=== PATIENT | male | born 1950 | race Caucasian/White ===

== ENCOUNTER → 2016-03-04 | Outpatient (REF) | payer MEDICARE ==
[~2016-03-04] MED LIST: /WARF25TA PO; GABA300C2 PO; METH10TA2 PO; PRIL20TA2 PO; TYLE325T5 PO; VALP250C PO; ZOCO20TA PO; [UNRECOGNIZED DRUG - CODE] PO; [UNRECOGNIZED DRUG - CODE] PO; [UNRECOGNIZED DRUG - CODE] TOP
== END ==
LOC: M SFHCCLAY 11:41
PROVIDERS: ATTEND Family Medicine
DX: E29.1 Testicular hypofunction (principal)

== ENCOUNTER → 2016-03-05 | Outpatient (CLI) | payer MEDICARE ==
[2016-03-05 14:24] LABS: FOLLICLE STIMULATING HORMONE 4.4 mIU/mL (1.4-18.1); LUTEINIZING HORMONE 2.8 mIU/mL (1.5-9.3)
== END | disposition home or self-care (01) ==
LOC: M LAB 12:33
PROVIDERS: ATTEND Family Medicine
DX: E29.1 Testicular hypofunction (principal)

== ENCOUNTER → 2017-02-24 | Outpatient (REF) | payer MEDICARE | LOC: M SFHCCLAY 12:22 | DX: M25.532 Pain in left wrist (principal); I10 Essential (primary) hypertension; Z51.81 Encounter for therapeutic drug level monitoring; G89.29 Other chronic pain; Z53.8 Procedure and treatment not carried out for other reasons ==

== ENCOUNTER → 2017-05-06 | Outpatient (REF) | payer MEDICARE ==
[2017-05-06 17:10] LABS: FREE T4 0.69 NG/DL (0.76-1.46)
== END ==
LOC: M SFHCCLAY 13:51
DX: R94.6 Abnormal results of thyroid function studies (principal)
CPT/HCPCS: 84443

== ENCOUNTER → 2018-06-29 | Outpatient (REF) | payer OTHER ==
[~2018-06-29] MED LIST changes: -/WARF25TA PO; +COUM1TAB18 PO
[2018-06-29 17:21] LABS: HEMATOCRIT 56.9 % (42.0-52.0); HEMOGLOBIN 18.7 g/dl (13.5-17.5); MEAN CORPUSCULAR HEMOGLOBIN 28.1 pg (27.0-33.0); MEAN CORPUSCULAR HGB CONC 32.9 g/dl (32.0-36.5); MEAN CORPUSCULAR VOLUME 85.6 fl (80.0-96.0); PLATELET COUNT, AUTOMATED 165 10^3/uL (150-450); RED BLOOD COUNT 6.65 10^6/uL (4.30-6.10); WHITE BLOOD COUNT 6.6 10^3/uL (4.0-10.0)
[2018-06-29 17:31] LABS: ALT/SGPT 37 U/L (12-78); BILIRUBIN,TOTAL 0.6 MG/DL (0.2-1.0); BLOOD UREA NITROGEN 18 MG/DL (7-18); CARBON DIOXIDE LEVEL 29 MEQ/L (21-32); CHLORIDE LEVEL 102 MEQ/L (98-107); GLOMERULAR FILTRATION RATE > 60.0 (>49); GLUCOSE, FASTING 87 MG/DL (70-100); POTASSIUM SERUM 4.4 MEQ/L (3.5-5.1); SODIUM LEVEL 139 MEQ/L (136-145); TOTAL PROTEIN 7.4 GM/DL (6.4-8.2); VALPROIC ACID (DEPAKOTE) 37.8 UG/ML (50.0-100.0)
[2018-07-07 00:06] LABS: CANNABINOID, URINE Positive (Cutoff=20); CARBOXY THC (GC/MS) 82 ng/mL (Cutoff=10); CREATININE, URINE 96.5 mg/dL (20.0-300.0); METHADONE, URINE (GC/MS) 730 ng/mL (Cutoff=100); OPIATES, URINE Negative ng/mL (Cutoff=300); OXYCODONE URINE Positive (.); OXYCODONE, URINE CONFIRM 1232 ng/mL (Cutoff=100); OXYCODONE/OXYMORPH, URINE Positive (Cutoff=100); OXYMORPHONE, URINE Positive (.); OXYMORPHONE, URINE CONFIRM 878 ng/mL (Cutoff=100)
== END ==
LOC: M SFHCCLAY 13:16
PROVIDERS: ATTEND Family Medicine
DX: Z51.81 Encounter for therapeutic drug level monitoring (principal); Z79.899 Other long term (current) drug therapy; M87.051 Idiopathic aseptic necrosis of right femur; G89.29 Other chronic pain; G40.909 Epilepsy, unspecified, not intractable, without status epilepticus

== ENCOUNTER → 2018-09-07 | Outpatient (CLI) | payer OTHER ==
--- NOTE | 2018-09-07 10:25 | REP ---
MRI RIGHT SHOULDER WITHOUT CONTRAST: TECHNIQUE: Axial T2 fat sat, gradient echo, sagittal oblique T2 fat sat, coronal oblique T1, T2 fat sat. The supraspinatus tendon demonstrates ill-defined high signal diffusely on T2-weighted images with focal full thickness partial tear of the distal tendon anteriorly. There is mild to moderate subscapularis tendinopathy. There are moderate hypertrophic degenerative changes of the acromioclavicular joint with mild fluid in the joint and associated subchondral marrow edema. Acromion is type 2. Biceps tendon is within the bicipital groove with mild surrounding fluid suggesting mild tenosynovitis. There is no Hill-Sachs deformity. Deltoid muscle demonstrates no abnormal signal. There is fraying of the biceps labral complex. The entire labrum appears frayed. Mild subchondral cystic changes are seen in the superolateral humeral head. There is a small joint effusion. No paralabral cyst is seen. IMPRESSION: Subscapularis and supraspinatus tendinopathy. There is a partial full thickness tear of the anterior supraspinatus tendon. Moderate hypertrophic degenerative changes acromioclavicular joint with type 2 acromion. Mild fluid surrounding the biceps tendon suggests mild tenosynovitis. There is fraying of the biceps labral complex and also diffusely of the entire labrum. Electronically Signed by Serg Montanez MD 09/07/2018 05:29 P
== END ==
LOC: M RAD 08:48
PROVIDERS: ATTEND Orthopaedic Surgery Sports Medicine
DX: M75.31 Calcific tendinitis of right shoulder (principal); S43.401A Unspecified sprain of right shoulder joint, initial encounter; X58.XXXA Exposure to other specified factors, initial encounter; Y92.89 Other specified places as the place of occurrence of the external cause

== ENCOUNTER → 2019-03-28 | Outpatient (CLI) | payer OTHER ==
[~2019-03-28] MED LIST changes: +E-Z-GAS II EFFERVESCENT PACKET (SODIUM BICARB./CITRIC ACID/SIMETHICONE) As Ordered ONE; +E-Z-HD 98% w/w 340GM SUSP BTL As Ordered ONE; +E-Z-PAQUE 96% w/w SUSP 176GM BTL As Ordered ONE
--- NOTE | 2019-03-28 07:50 | REP ---
Clinical: Right upper quadrant pain. Technique: Real time bassett scale ultrasound examination using curved array transducer. Findings: The liver is mildly echogenic suggesting fatty infiltration. No focal hepatic lesion identified. The pancreas is limited in evaluation due to interposed bowel gas but visualized portions appear normal. The gallbladder is unremarkable and without gallstones, wall thickening, or pericholecystic fluid. No biliary ductal dilatation is appreciated and the common bile duct measures 2.8 mm diameter. The right kidney is normal in reniform shape without hydronephrosis and measures 11.2 x 5.4 x 5.6 cm. No ascites. Impression: Hepatic steatosis. Electronically Signed by Isai Guillen MD 03/28/2019 07:41 A
--- NOTE | 2019-03-28 16:44 | REP ---
Esophagram The procedure was performed under the direct supervision of Dr. Russell. The images were reviewed with Dr. Russell. A single view PA chest x-ray is submitted as a switchboard and control room operator film. The superior mediastinal structures are midline. The heart size is within normal limits. The lungs are clear. Liquid barium and gas producing granules were given in the erect position as well as liquid barium in the prone oblique positions in order to perform a double contrast esophagram examination. The oral and pharyngeal stages of deglutition are unremarkable. There are esophageal transport there are tertiary waves demonstrated. There is no esophagitis stricture or mucosal ring. There is a sliding type hiatal hernia. There is gastroesophageal reflux demonstrated to above the level of the sudheer. Impression: 1. Tertiary waves. 2. There is a sliding type hiatal hernia. There is gastroesophageal reflux demonstrated to above the level of the sudheer. 0.8 minutes of fluoro time was utilized for this procedure. Electronically Signed by DIVYA Barrett 03/28/2019 04:32 P Electronically Signed by Kapil Russell MD 03/28/2019 04:36 P
== END ==
LOC: M RAD 07:05
PROVIDERS: ATTEND Physician Assistant Medical
DX: R10.9 Unspecified abdominal pain (principal); K21.9 Gastro-esophageal reflux disease without esophagitis

== ENCOUNTER → 2019-06-22 | Outpatient (REF) | payer OTHER ==
[~2019-06-22] MED LIST changes: -E-Z-GAS II EFFERVESCENT PACKET (SODIUM BICARB./CITRIC ACID/SIMETHICONE) As Ordered ONE; -E-Z-HD 98% w/w 340GM SUSP BTL As Ordered ONE; -E-Z-PAQUE 96% w/w SUSP 176GM BTL As Ordered ONE
[2019-06-23 11:37] LABS: HEMATOCRIT 56.7 % (42.0-52.0); HEMOGLOBIN 19.3 g/dl (13.5-17.5); MEAN CORPUSCULAR HEMOGLOBIN 29.8 pg (27.0-33.0); MEAN CORPUSCULAR VOLUME 87.5 fl (80.0-96.0); PLATELET COUNT, AUTOMATED 211 10^3/uL (150-450); RED BLOOD COUNT 6.48 10^6/uL (4.30-6.10); WHITE BLOOD COUNT 11.1 10^3/uL (4.0-10.0)
[2019-06-23 11:50] LABS: ALBUMIN 4.3 GM/DL (3.2-5.2); BILIRUBIN,TOTAL 0.9 MG/DL (0.2-1.0); CALCIUM LEVEL 9.2 MG/DL (8.8-10.2); CHOLESTEROL RISK RATIO 6.085 (<5); CREATININE FOR GFR 1.28 MG/DL (0.70-1.30); GLOMERULAR FILTRATION RATE 59.9 (>49); POTASSIUM SERUM 4.2 MEQ/L (3.5-5.1); TOTAL PROTEIN 7.7 GM/DL (6.4-8.2); VALPROIC ACID (DEPAKOTE) 71.5 UG/ML (50.0-100.0)
[2019-06-29 10:42] LABS: CANNABINOID, URINE Positive (Cutoff=20); CARBOXY THC (GC/MS) 102 ng/mL (Cutoff=10); CREATININE, URINE 384.7 mg/dL (20.0-300.0); METHADONE, URINE (GC/MS) 2371 ng/mL (Cutoff=100); OPIATES, URINE Negative ng/mL (Cutoff=300); OXYCODONE URINE Positive (.); OXYCODONE, URINE CONFIRM 6726 ng/mL (Cutoff=100); OXYCODONE/OXYMORPH, URINE Positive (Cutoff=100); OXYMORPHONE, URINE Positive (.); OXYMORPHONE, URINE CONFIRM 3924 ng/mL (Cutoff=100)
== END ==
LOC: M SFHCCLAY 14:13
PROVIDERS: ATTEND Family Medicine
DX: G60.9 Hereditary and idiopathic neuropathy, unspecified (principal); E78.2 Mixed hyperlipidemia; G40.909 Epilepsy, unspecified, not intractable, without status epilepticus; Z51.81 Encounter for therapeutic drug level monitoring
CPT/HCPCS: 80053; 80061; 80164; 80307; 85027; G0463

== ENCOUNTER → 2020-12-21 | Outpatient (REF) | payer OTHER | LOC: M SFHCCLAY 07:18 | PROVIDERS: ATTEND Family Medicine | DX: G89.29 Other chronic pain (principal); M87.051 Idiopathic aseptic necrosis of right femur; G60.9 Hereditary and idiopathic neuropathy, unspecified; E78.2 Mixed hyperlipidemia ==

== ENCOUNTER → 2021-01-16 | Outpatient (CLI) | payer OTHER ==
--- NOTE | 2021-01-16 11:25 | REP ---
INDICATION: M79.671, M79.672 BIALTERAL FOOR PAIN COMPARISON: None. TECHNIQUE: AP, lateral, bilateral oblique views right and left foot. FINDINGS: Right and left foot demonstrate relatively symmetric generalized age-related arthritic changes including elements of periarticular sclerosis with minimal joint space narrowing. Findings are most pronounced involving the bilateral 1st toes. Lateral views demonstrate small calcaneal heel spurs (left greater than right). There is no evidence for acute or healed injury. IMPRESSION: Generalized symmetric age-related arthritic changes. <Electronically signed by Isai Guillen > 01/16/21 1121
== END ==
LOC: M CLY 10:46
PROVIDERS: ATTEND Family Medicine
DX: M77.31 Calcaneal spur, right foot (principal); M77.32 Calcaneal spur, left foot; E78.2 Mixed hyperlipidemia; G89.29 Other chronic pain; M87.051 Idiopathic aseptic necrosis of right femur; G60.9 Hereditary and idiopathic neuropathy, unspecified; I10 Essential (primary) hypertension; M79.671 Pain in right foot; M79.672 Pain in left foot

== ENCOUNTER → 2021-01-16 | Outpatient (REF) | payer OTHER ==
[2021-01-16 16:17] LABS: HEMATOCRIT 48.1 % (42.0-52.0); HEMOGLOBIN 16.2 g/dl (13.5-17.5); MEAN CORPUSCULAR HEMOGLOBIN 29.7 pg (27.0-33.0); MEAN CORPUSCULAR HGB CONC 33.7 g/dl (32.0-36.5); MEAN CORPUSCULAR VOLUME 88.1 fl (80.0-96.0); PLATELET COUNT, AUTOMATED 167 10^3/uL (150-450); RED BLOOD COUNT 5.46 10^6/uL (4.30-6.10); WHITE BLOOD COUNT 6.9 10^3/uL (4.0-10.0)
[2021-01-16 16:22] LABS: APPEARANCE, URINE CLEAR (CLEAR); BACTERIA, URINE AUTO NEGATIVE (NEGATIVE); BILIRUBIN, URINE AUTO NEGATIVE (NEGATIVE); BLOOD, URINE BLOOD NEGATIVE (NEGATIVE); COLOR, URINE YELLOW (YELLOW); GLUCOSE, URINE (UA) AUTO NEGATIVE (NEGATIVE); KETONE, URINE AUTO TRACE mg/dL (NEGATIVE); LEUKOCYTE ESTERASE, URINE AUTO NEGATIVE (NEGATIVE); MUCUS, URINE SMALL (NEGATIVE); NITRITE, URINE AUTO NEGATIVE (NEGATIVE); PROTEIN, URINE AUTO NEGATIVE (NEGATIVE); RBC, URINE AUTO 0 /HPF (0-3); SPECIFIC GRAVITY URINE AUTO 1.025 (1.002-1.035); SQUAMOUS EPITHELIAL CELL UR AU 0 /HPF (0-6); UROBILINOGEN, URINE AUTO 0.2 mg/dL (0.0-2.0); WBC, URINE AUTO 0 /HPF (0-3)
[2021-01-16 16:44] LABS: ALBUMIN 3.8 GM/DL (3.2-5.2); BILIRUBIN,TOTAL 0.9 MG/DL (0.2-1.0); CALCIUM LEVEL 8.9 MG/DL (8.8-10.2); CHOLESTEROL RISK RATIO 6.027 (<5); CREATININE FOR GFR 1.61 MG/DL (0.70-1.30); FREE T4 1.18 NG/DL (0.76-1.46); GLOMERULAR FILTRATION RATE 45.7 (>49); POTASSIUM SERUM 4.8 MEQ/L (3.5-5.1); THYROID STIMULATING HORMONE 4.13 uIU/ML (0.358-3.740); TOTAL PROTEIN 7.1 GM/DL (6.4-8.2); URIC ACID 10.2 MG/DL (3.5-7.2)
== END ==
LOC: M SFHCCLAY 10:43
PROVIDERS: ATTEND Family Medicine
DX: E78.2 Mixed hyperlipidemia (principal); G89.29 Other chronic pain; M87.051 Idiopathic aseptic necrosis of right femur; G60.9 Hereditary and idiopathic neuropathy, unspecified; I10 Essential (primary) hypertension; M79.671 Pain in right foot; M79.672 Pain in left foot

== ENCOUNTER → 2021-08-23 | Outpatient (REF) | payer OTHER ==
[2021-08-23 18:47] LABS: ALBUMIN 4.2 GM/DL (3.2-5.2); ALT/SGPT 49 U/L (12-78); BILIRUBIN,TOTAL 0.6 MG/DL (0.2-1.0); BLOOD UREA NITROGEN 20 MG/DL (7-18); CALCIUM LEVEL 9.4 MG/DL (8.8-10.2); CARBON DIOXIDE LEVEL 29 MEQ/L (21-32); CHLORIDE LEVEL 105 MEQ/L (98-107); CREATININE FOR GFR 1.25 MG/DL (0.70-1.30); FERRITIN 44 NG/ML (26-388); GLOMERULAR FILTRATION RATE > 60.0 (>49); GLUCOSE, FASTING 78 MG/DL (70-100); IRON (FE) 79 UG/DL (65-175); PERCENT SATURATION 22.8 % (19.7-50.0); POTASSIUM SERUM 4.3 MEQ/L (3.5-5.1); SODIUM LEVEL 138 MEQ/L (136-145); TOTAL IRON BINDING CAPACITY 346 UG/DL (250-450); TOTAL PROTEIN 7.1 GM/DL (6.4-8.2)
== END ==
LOC: M SFHCCLAY 15:40
PROVIDERS: ATTEND Family Medicine
DX: M19.90 Unspecified osteoarthritis, unspecified site (principal); G89.29 Other chronic pain; E29.1 Testicular hypofunction

== ENCOUNTER → 2021-12-20 | Outpatient (CLI) | payer OTHER | LOC: M CLY 15:45 | PROVIDERS: ATTEND Family Medicine | DX: M19.90 Unspecified osteoarthritis, unspecified site (principal) ==

== ENCOUNTER → 2022-03-21 | Outpatient (REF) | payer OTHER ==
[2022-03-21 17:33] LABS: BASO % 0.5 % (0.0-1.0); EOS # 0.3 10^3/uL (0.0-0.5); EOS % 3.5 % (0.0-3.0); HEMATOCRIT 52.6 % (42.0-52.0); HEMOGLOBIN 16.9 g/dl (13.5-17.5); LYMPH # 2.1 10^3/uL (1.5-5.0); LYMPH % 26.5 % (24.0-44.0); MEAN CORPUSCULAR HEMOGLOBIN 29.4 pg (27.0-33.0); MEAN CORPUSCULAR HGB CONC 32.1 g/dl (32.0-36.5); MEAN CORPUSCULAR VOLUME 91.6 fl (80.0-96.0); MONO # 0.6 10^3/uL (0.0-0.8); MONO % 7.5 % (2.0-8.0); NEUTROPHILS % 61.8 % (36.0-66.0); PLATELET COUNT, AUTOMATED 156 10^3/uL (150-450); RED BLOOD COUNT 5.74 10^6/uL (4.30-6.10)
[2022-03-21 17:53] LABS: ERYTHROCYTE SEDIMENTATION RATE 16 mm/hr (0-20)
[2022-03-21 17:54] LABS: URIC ACID 8.9 MG/DL (3.7-9.2)
[2022-03-21 17:57] LABS: ALBUMIN 3.8 G/DL (3.2-5.2); ALKALINE PHOSPHATASE 56 U/L (46-116); ALT/SGPT 21 U/L (7.0-40); AST/SGOT 18 U/L (<34); BILIRUBIN,TOTAL 0.6 MG/DL (0.3-1.2); BLOOD UREA NITROGEN 17 MG/DL (9-23); CARBON DIOXIDE LEVEL 28 MMOL/L (20-31); CHLORIDE LEVEL 104 MMOL/L (98-107); CREATININE FOR GFR 1.18 MG/DL (0.70-1.30); GLOMERULAR FILTRATION RATE > 60.0 (>49); GLUCOSE, FASTING 89 MG/DL (74-106); POTASSIUM SERUM 5.2 MMOL/L (3.5-5.1); SODIUM LEVEL 140 MMOL/L (136-145); TOTAL PROTEIN 6.9 G/DL (5.7-8.2)
[2022-03-21 17:58] LABS: RHEUMATOID FACTOR QUANT 5.6 IU/ML (<14)
[2022-03-21 19:06] LABS: CHOLESTEROL LEVEL 157 MG/DL (<200); CHOLESTEROL RISK RATIO 3.94 (<5); HDL CHOLESTEROL 39.8 MG/DL (>40); LDL CHOLESTEROL 85.6 MG/DL (<100); NON-HDL-C 117 MG/DL; TRIGLYCERIDES LEVEL 158 MG/DL (<150)
[2022-03-21 19:09] LABS: FREE T4 1.05 NG/DL (0.89-1.76); THYROID STIMULATING HORMONE 5.674 uIU/ML (0.55-4.78)
[2022-03-24 17:07] LABS: ANA (HEP2) Positive (.)
== END ==
LOC: M SFHCCLAY 14:19
PROVIDERS: ATTEND Family Medicine
DX: M12.9 Arthropathy, unspecified (principal); I10 Essential (primary) hypertension; G40.909 Epilepsy, unspecified, not intractable, without status epilepticus; Z23 Encounter for immunization

== ENCOUNTER → 2022-08-11 | Outpatient (REF) | payer OTHER ==
[2022-08-11 17:13] LABS: APPEARANCE, URINE CLEAR (CLEAR); BACTERIA, URINE AUTO NEGATIVE (NEGATIVE); BILIRUBIN, URINE AUTO NEGATIVE (NEGATIVE); BLOOD, URINE BLOOD NEGATIVE (NEGATIVE); COLOR, URINE YELLOW (YELLOW); GLUCOSE, URINE (UA) AUTO NEGATIVE (NEGATIVE); KETONE, URINE AUTO NEGATIVE (NEGATIVE); LEUKOCYTE ESTERASE, URINE AUTO NEGATIVE (NEGATIVE); NITRITE, URINE AUTO NEGATIVE (NEGATIVE); PROTEIN, URINE AUTO NEGATIVE (NEGATIVE); RBC, URINE AUTO 0 /HPF (0-3); SPECIFIC GRAVITY URINE AUTO 1.018 (1.002-1.035); SQUAMOUS EPITHELIAL CELL UR AU 0 /HPF (0-6); UROBILINOGEN, URINE AUTO 0.2 mg/dL (0.0-2.0); WBC, URINE AUTO 0 /HPF (0-3)
[2022-08-11 17:46] LABS: C REACTIVE PROTEIN QUANTITATIV < 0.40 MG/DL (<1.0)
[2022-08-11 17:47] LABS: COMPLEMENT C4 20.6 MG/DL (12-36)
[2022-08-11 17:48] LABS: BASO % 0.5 % (0.0-1.0); EOS # 0.4 10^3/uL (0.0-0.5); EOS % 4.7 % (0.0-3.0); HEMATOCRIT 53.9 % (42.0-52.0); HEMOGLOBIN 17.5 g/dl (13.5-17.5); LYMPH # 1.8 10^3/uL (1.5-5.0); LYMPH % 22.8 % (24.0-44.0); MEAN CORPUSCULAR HEMOGLOBIN 28.3 pg (27.0-33.0); MEAN CORPUSCULAR HGB CONC 32.5 g/dl (32.0-36.5); MEAN CORPUSCULAR VOLUME 87.1 fl (80.0-96.0); MONO # 0.5 10^3/uL (0.0-0.8); MONO % 6.7 % (2.0-8.0); NEUTROPHILS # 5.2 10^3/uL (1.5-8.5); NEUTROPHILS % 64.9 % (36.0-66.0); PLATELET COUNT, AUTOMATED 172 10^3/uL (150-450)
[2022-08-11 17:49] LABS: ALKALINE PHOSPHATASE 62 U/L (46-116); ALT/SGPT 21 U/L (7.0-40); AST/SGOT < 8 U/L (<34); BLOOD UREA NITROGEN 13 MG/DL (9-23); CALCIUM LEVEL 8.6 MG/DL (8.3-10.6); CARBON DIOXIDE LEVEL 28 MMOL/L (20-31); CHLORIDE LEVEL 104 MMOL/L (98-107); CREATININE FOR GFR 1.25 MG/DL (0.70-1.30); GLOMERULAR FILTRATION RATE > 60.0 (>49); GLUCOSE, FASTING 80 MG/DL (74-106); POTASSIUM SERUM 3.9 MMOL/L (3.5-5.1); SODIUM LEVEL 140 MMOL/L (136-145); URIC ACID 7.2 MG/DL (3.7-9.2)
[2022-08-11 17:52] LABS: RED BLOOD COUNT 6.19 10^6/uL (4.30-6.10)
[2022-08-11 17:58] LABS: ERYTHROCYTE SEDIMENTATION RATE 19 mm/hr (0-20)
[2022-08-11 18:01] LABS: TOTAL PROTEIN,RANDOM URINE 17.6 MG/DL (0.0-14.0)
[2022-08-11 21:02] LABS: BILIRUBIN,TOTAL 0.6 MG/DL (0.3-1.2); TOTAL PROTEIN 6.9 G/DL (5.7-8.2)
[2022-08-12 22:31] LABS: HEPATITIS B SURFACE ANTIGEN NEGATIVE (NEGATIVE)
[2022-08-12 22:52] LABS: HEPATITIS C VIRUS ABY INDEX 0.09 INDEX (<0.8)
[2022-08-12 22:53] LABS: HEPATITIS B CORE ANTIBODY IGM NEGATIVE (NEGATIVE)
== END ==
LOC: M SFHCRHEU 13:12
PROVIDERS: ATTEND Internal Medicine Rheumatology
DX: M25.50 Pain in unspecified joint (principal); M1A.9XX0 Chronic gout, unspecified, without tophus (tophi); I73.00 Raynaud's syndrome without gangrene; R21 Rash and other nonspecific skin eruption; R76.8 Other specified abnormal immunological findings in serum

== ENCOUNTER → 2022-10-15 | Outpatient (REF) | payer OTHER | LOC: M SFHCRHEU 11:50 | PROVIDERS: ATTEND Internal Medicine Rheumatology | DX: M25.50 Pain in unspecified joint (principal); M1A.9XX0 Chronic gout, unspecified, without tophus (tophi); I73.00 Raynaud's syndrome without gangrene; R21 Rash and other nonspecific skin eruption; R76.8 Other specified abnormal immunological findings in serum ==

== ENCOUNTER → 2022-10-31 | Outpatient (REF) | payer OTHER ==
[2022-10-31 17:45] LABS: BASO # 0.1 10^3/uL (0.0-0.2); BASO % 0.5 % (0.0-1.0); EOS # 0.3 10^3/uL (0.0-0.5); EOS % 3.4 % (0.0-3.0); HEMATOCRIT 55.6 % (42.0-52.0); HEMOGLOBIN 17.6 g/dl (13.5-17.5); LYMPH % 21.2 % (24.0-44.0); MEAN CORPUSCULAR HEMOGLOBIN 27.5 pg (27.0-33.0); MEAN CORPUSCULAR HGB CONC 31.7 g/dl (32.0-36.5); MEAN CORPUSCULAR VOLUME 86.9 fl (80.0-96.0); MONO # 0.7 10^3/uL (0.0-0.8); MONO % 7.4 % (2.0-8.0); NEUTROPHILS # 6.3 10^3/uL (1.5-8.5); NEUTROPHILS % 67.3 % (36.0-66.0); PLATELET COUNT, AUTOMATED 174 10^3/uL (150-450); WHITE BLOOD COUNT 9.3 10^3/uL (4.0-10.0)
[2022-10-31 18:05] LABS: VALPROIC ACID (DEPAKOTE) 43.8 UG/ML (50.0-100.0)
[2022-10-31 18:06] LABS: ALBUMIN 3.9 G/DL (3.2-5.2); ALKALINE PHOSPHATASE 62 U/L (46-116); ALT/SGPT 22 U/L (7.0-40); AST/SGOT 13 U/L (<34); BILIRUBIN,TOTAL 0.4 MG/DL (0.3-1.2); BLOOD UREA NITROGEN 15 MG/DL (9-23); CALCIUM LEVEL 9.4 MG/DL (8.3-10.6); CARBON DIOXIDE LEVEL 30 MMOL/L (20-31); CHLORIDE LEVEL 103 MMOL/L (98-107); CHOLESTEROL LEVEL 134 MG/DL (<200); CHOLESTEROL RISK RATIO 3.51 (<5); GLOMERULAR FILTRATION RATE > 60.0 (>49); GLUCOSE, FASTING 102 MG/DL (74-106); HDL CHOLESTEROL 38.1 MG/DL (>40); LDL CHOLESTEROL 54.5 MG/DL (<100); NON-HDL-C 95.9 MG/DL; POTASSIUM SERUM 4.7 MMOL/L (3.5-5.1); SODIUM LEVEL 140 MMOL/L (136-145); TOTAL PROTEIN 7.1 G/DL (5.7-8.2); TRIGLYCERIDES LEVEL 207 MG/DL (<150)
[2022-10-31 18:07] LABS: URIC ACID 6.4 MG/DL (3.7-9.2)
[2022-10-31 18:08] LABS: C REACTIVE PROTEIN QUANTITATIV < 0.40 MG/DL (<1.0)
[2022-10-31 19:30] LABS: ERYTHROCYTE SEDIMENTATION RATE 10 mm/hr (0-20)
== END ==
LOC: M SFHCCLAY 12:29
PROVIDERS: ATTEND Family Medicine
DX: M25.50 Pain in unspecified joint (principal); I73.00 Raynaud's syndrome without gangrene; R21 Rash and other nonspecific skin eruption; M1A.9XX0 Chronic gout, unspecified, without tophus (tophi); R76.8 Other specified abnormal immunological findings in serum; Z51.81 Encounter for therapeutic drug level monitoring; M12.9 Arthropathy, unspecified; Z23 Encounter for immunization; R07.89 Other chest pain; G56.01 Carpal tunnel syndrome, right upper limb; L57.0 Actinic keratosis; Z12.5 Encounter for screening for malignant neoplasm of prostate
CPT/HCPCS: 80053; 80061; 80164; 80307; 84550; 85025; 85652; 86140; G0103

== ENCOUNTER → 2023-01-23 | Outpatient (REF) | payer OTHER ==
[2023-01-23 17:50] LABS: BASO # 0.1 10^3/uL (0.0-0.2); BASO % 0.5 % (0.0-1.0); EOS # 0.3 10^3/uL (0.0-0.5); EOS % 2.9 % (0.0-3.0); HEMATOCRIT 57.1 % (42.0-52.0); HEMOGLOBIN 18.6 g/dl (13.5-17.5); LYMPH # 1.9 10^3/uL (1.5-5.0); LYMPH % 20.1 % (24.0-44.0); MEAN CORPUSCULAR HEMOGLOBIN 28.4 pg (27.0-33.0); MEAN CORPUSCULAR HGB CONC 32.6 g/dl (32.0-36.5); MEAN CORPUSCULAR VOLUME 87.3 fl (80.0-96.0); MONO # 0.7 10^3/uL (0.0-0.8); MONO % 7.4 % (2.0-8.0); NEUTROPHILS # 6.5 10^3/uL (1.5-8.5); NEUTROPHILS % 68.8 % (36.0-66.0); PLATELET COUNT, AUTOMATED 198 10^3/uL (150-450); RED BLOOD COUNT 6.54 10^6/uL (4.30-6.10); WHITE BLOOD COUNT 9.5 10^3/uL (4.0-10.0)
[2023-01-23 17:58] LABS: ERYTHROCYTE SEDIMENTATION RATE 14 mm/hr (0-20)
[2023-01-23 18:07] LABS: URIC ACID 6.4 MG/DL (3.7-9.2)
[2023-01-23 18:09] LABS: C REACTIVE PROTEIN QUANTITATIV < 0.40 MG/DL (<1.0)
[2023-01-23 18:11] LABS: ALBUMIN 4.2 G/DL (3.2-5.2); BILIRUBIN,TOTAL 0.8 MG/DL (0.3-1.2); CALCIUM LEVEL 9.3 MG/DL (8.3-10.6); CREATININE FOR GFR 1.49 MG/DL (0.70-1.30); GLOMERULAR FILTRATION RATE 49.6 (>42); POTASSIUM SERUM 4.3 MMOL/L (3.5-5.1); TOTAL PROTEIN 7.4 G/DL (5.7-8.2)
== END ==
LOC: M SFHCRHEU 11:42
PROVIDERS: ATTEND Internal Medicine Rheumatology
DX: M25.50 Pain in unspecified joint (principal); I73.00 Raynaud's syndrome without gangrene; R21 Rash and other nonspecific skin eruption; M1A.9XX0 Chronic gout, unspecified, without tophus (tophi); R76.8 Other specified abnormal immunological findings in serum

== ENCOUNTER → 2023-03-20 | Outpatient (REF) | payer OTHER ==
[2023-03-20 18:28] LABS: C REACTIVE PROTEIN QUANTITATIV < 0.40 MG/DL (<1.0)
[2023-03-20 18:40] LABS: ALKALINE PHOSPHATASE 63 U/L (46-116); ALT/SGPT 33 U/L (7.0-40); AST/SGOT 25 U/L (<34); BILIRUBIN,TOTAL 0.7 MG/DL (0.3-1.2); BLOOD UREA NITROGEN 16 MG/DL (9-23); CALCIUM LEVEL 9.4 MG/DL (8.3-10.6); CARBON DIOXIDE LEVEL 30 MMOL/L (20-31); CHLORIDE LEVEL 102 MMOL/L (98-107); CREATININE FOR GFR 1.02 MG/DL (0.70-1.30); GLOMERULAR FILTRATION RATE > 60.0 (>42); GLUCOSE, FASTING 92 MG/DL (74-106); POTASSIUM SERUM 4.8 MMOL/L (3.5-5.1); SODIUM LEVEL 134 MMOL/L (136-145); TOTAL PROTEIN 7.4 G/DL (5.7-8.2); URIC ACID 4.6 MG/DL (3.7-9.2)
[2023-03-20 19:05] LABS: ERYTHROCYTE SEDIMENTATION RATE 16 mm/hr (0-20)
[2023-03-20 19:21] LABS: BASO % 0.5 % (0.0-1.0); EOS # 0.2 10^3/uL (0.0-0.5); EOS % 2.8 % (0.0-3.0); HEMATOCRIT 54.6 % (42.0-52.0); HEMOGLOBIN 18.1 g/dl (13.5-17.5); LYMPH # 1.8 10^3/uL (1.5-5.0); LYMPH % 23.6 % (24.0-44.0); MEAN CORPUSCULAR HEMOGLOBIN 29.1 pg (27.0-33.0); MEAN CORPUSCULAR HGB CONC 33.2 g/dl (32.0-36.5); MEAN CORPUSCULAR VOLUME 87.9 fl (80.0-96.0); MONO # 0.6 10^3/uL (0.0-0.8); MONO % 7.5 % (2.0-8.0); NEUTROPHILS % 65.3 % (36.0-66.0); PLATELET COUNT, AUTOMATED 186 10^3/uL (150-450); RED BLOOD COUNT 6.21 10^6/uL (4.30-6.10); WHITE BLOOD COUNT 7.6 10^3/uL (4.0-10.0)
== END ==
LOC: M SFHCCLAY 11:45
PROVIDERS: ATTEND Internal Medicine Rheumatology
DX: R76.8 Other specified abnormal immunological findings in serum (principal); M25.50 Pain in unspecified joint; I73.00 Raynaud's syndrome without gangrene; R21 Rash and other nonspecific skin eruption; M1A.9XX0 Chronic gout, unspecified, without tophus (tophi)

== ENCOUNTER 2023-07-31 07:01 | Day surgery (SDC) | payer OTHER ==
[~2023-07-31] VITALS: Ht 172.7 cm; Wt 85.7 kg
[~2023-07-31 07:01] MED LIST changes: +ALLO300T2 PO; +ATOR1TAB21 PO; +CARV6.25 PO; +FEXO-157 PO; +GABA600T4 PO; +METH5TA PO; +NS 1,000 ML IV ONE; +OMEP-173 PO; +OXYC-517 PO; +VALP1CAP2 PO; +VALS1TAB67 PO
[2023-07-31] MEDS ORDERED: fentaNYL 100 MCG/2 ML INJECTION As Ordered ONE (08:02)
[2023-07-31 08:44] VITALS: TEMP 98.1
[2023-07-31 09:04] VITALS: BP 132/75; O2SAT 97
[2023-07-31] MEDS ORDERED: LIDOCAINE 2% 100MG/5ML SDV (FOR ANES.) As Ordered ONE (09:51)
[2023-07-31] MEDS ORDERED: propofoL 200 MG/20 ML VIAL As Ordered ONE (09:51)
== END 2023-07-31 09:14 | disposition home or self-care (01) ==
LOC: M OPP 07:01
PROVIDERS: ATTEND Internal Medicine Gastroenterology
DX: R19.5 Other fecal abnormalities (principal); D12.2 Benign neoplasm of ascending colon; K63.5 Polyp of colon; K22.4 Dyskinesia of esophagus; K44.9 Diaphragmatic hernia without obstruction or gangrene; K29.70 Gastritis, unspecified, without bleeding; R13.10 Dysphagia, unspecified; I10 Essential (primary) hypertension; Z79.02 Long term (current) use of antithrombotics/antiplatelets; Z79.891 Long term (current) use of opiate analgesic; Z79.899 Other long term (current) drug therapy; Z88.8 Allergy status to other drugs, medicaments and biological substances
CPT/HCPCS: 43239; 43249; 45385; 88305; J3010

== ENCOUNTER → 2024-03-16 | Outpatient (REF) | payer OTHER ==
[~2024-03-16] MED LIST changes: -FEXO-157 PO; +FEXO-63 PO; +GABA-1490 PO; -GABA600T4 PO; -NS 1,000 ML IV ONE
[2024-03-16 17:48] LABS: BASO # 0.1 10^3/uL (0.0-0.2); BASO % 0.7 % (0.0-1.0); EOS # 0.4 10^3/uL (0.0-0.5); HEMATOCRIT 55.5 % (42.0-52.0); LYMPH # 1.9 10^3/uL (1.5-5.0); LYMPH % 26.8 % (24.0-44.0); MEAN CORPUSCULAR HEMOGLOBIN 29.3 pg (27.0-33.0); MEAN CORPUSCULAR HGB CONC 32.4 g/dl (32.0-36.5); MEAN CORPUSCULAR VOLUME 90.4 fl (80.0-96.0); MONO # 0.5 10^3/uL (0.0-0.8); NEUTROPHILS # 4.3 10^3/uL (1.5-8.5); NEUTROPHILS % 59.2 % (36.0-66.0); PLATELET COUNT, AUTOMATED 137 10^3/uL (150-450); RED BLOOD COUNT 6.14 10^6/uL (4.30-6.10); WHITE BLOOD COUNT 7.2 10^3/uL (4.0-10.0)
[2024-03-16 18:22] LABS: ALBUMIN 3.9 G/DL (3.2-5.2); ALKALINE PHOSPHATASE 63 U/L (40-129); ALT/SGPT 22 U/L (7.0-40); AST/SGOT 18 U/L (<34); BILIRUBIN,TOTAL 0.5 MG/DL (0.3-1.2); BLOOD UREA NITROGEN 18 MG/DL (9-23); CALCIUM LEVEL 9.2 MG/DL (8.3-10.6); CARBON DIOXIDE LEVEL 29 MMOL/L (20-31); CHLORIDE LEVEL 105 MMOL/L (98-107); CHOLESTEROL LEVEL 157 MG/DL (<200); CHOLESTEROL RISK RATIO 3.32 (<5); CREATININE FOR GFR 1.06 MG/DL (0.70-1.30); GLOMERULAR FILTRATION RATE > 60.0 (>42); GLUCOSE, FASTING 103 MG/DL (74-106); HDL CHOLESTEROL 47.2 MG/DL (>40); LDL CHOLESTEROL 86.4 MG/DL (<100); NON-HDL-C 109.8 MG/DL; SODIUM LEVEL 142 MMOL/L (136-145); TOTAL PROTEIN 7.5 G/DL (5.7-8.2); TRIGLYCERIDES LEVEL 117 MG/DL (<150)
[2024-03-16 18:23] LABS: TESTOSTERONE 203 NG/DL (241-827)
== END ==
LOC: M SFHCCLAY 11:23
PROVIDERS: ATTEND Physician Assistant
DX: E29.1 Testicular hypofunction (principal); G40.909 Epilepsy, unspecified, not intractable, without status epilepticus; R71.8 Other abnormality of red blood cells; I10 Essential (primary) hypertension; E78.2 Mixed hyperlipidemia; M1A.9XX0 Chronic gout, unspecified, without tophus (tophi)

== ENCOUNTER → 2024-10-13 | Outpatient (REF) | payer OTHER ==
[2024-10-13 18:13] LABS: BASO # 0.0 10^3/uL (0.0-0.2); BASO % 0.4 % (0.0-1.0); EOS # 0.3 10^3/uL (0.0-0.5); EOS % 4.7 % (0.0-3.0); LYMPH # 1.5 10^3/uL (1.5-5.0); LYMPH % 21.4 % (24.0-44.0); MONO # 0.5 10^3/uL (0.0-0.8); MONO % 6.5 % (2.0-8.0); NEUTROPHILS # 4.7 10^3/uL (1.5-8.5); NEUTROPHILS % 66.7 % (36.0-66.0); PLATELET COUNT, AUTOMATED 159 10^3/uL (150-450)
[2024-10-13 18:14] LABS: VALPROIC ACID (DEPAKOTE) 63.9 UG/ML (50.0-100.0)
[2024-10-13 18:16] LABS: ALT/SGPT 25.0 U/L (7.0-40); AST/SGOT 25.0 U/L (<34); CALCIUM LEVEL 8.9 MG/DL (8.3-10.6); CARBON DIOXIDE LEVEL 26.0 MMOL/L (20-31); CHLORIDE LEVEL 105.0 MMOL/L (98-107); CHOLESTEROL LEVEL 131.0 MG/DL (<200); CHOLESTEROL RISK RATIO 2.53 (<5); CREATININE FOR GFR 1.24 MG/DL (0.70-1.30); GLOMERULAR FILTRATION RATE 62.2 (>42); LDL CHOLESTEROL 48.3 MG/DL (<100); NON-HDL-C 79.3 MG/DL; POTASSIUM SERUM 4.8 MMOL/L (3.5-5.1); PSA SCREENING 1.26 NG/ML (< 4.00); SODIUM LEVEL 142.0 MMOL/L (136-145); TESTOSTERONE 280.0 NG/DL (241-827); TRIGLYCERIDES LEVEL 155.0 MG/DL (<150)
[2024-10-13 18:50] LABS: ESTIMATED AVERAGE GLUCOSE 103.0 MG/DL (60-110)
== END ==
LOC: M SFHCCLAY 10:57
PROVIDERS: ATTEND Physician Assistant
DX: Z00.00 Encounter for general adult medical examination without abnormal findings (principal); I10 Essential (primary) hypertension; G40.909 Epilepsy, unspecified, not intractable, without status epilepticus; E29.1 Testicular hypofunction; E78.2 Mixed hyperlipidemia; M1A.9XX0 Chronic gout, unspecified, without tophus (tophi); R71.8 Other abnormality of red blood cells; R13.10 Dysphagia, unspecified; K40.90 Unilateral inguinal hernia, without obstruction or gangrene, not specified as recurrent; G89.29 Other chronic pain; H10.44 Vernal conjunctivitis; G62.9 Polyneuropathy, unspecified; M87.051 Idiopathic aseptic necrosis of right femur; Z12.5 Encounter for screening for malignant neoplasm of prostate
CPT/HCPCS: 80053; 80061; 80164; 80307; 83036; 84403; 85025; G0103